=== PATIENT | male | born 1960 | race Caucasian/White ===

== ENCOUNTER 2016-02-28 19:49 | Emergency (ER) | payer BC ==
[~2016-02-28] VITALS: Ht 195.6 cm; Wt 104.3 kg
--- NOTE | ~2016-02-28 | EKG ---
[address] [address] ELECTROCARDIOGRAM REPORT Name: KIRSTENELIZABETH Room [facility]: [facility] [id number] Admission: 02/28/16 Attend Phys: Discharge: 02/28/16 Date of : 60 Report #: [id number] THIS REPORT FOR: //name// [facility] ED Test Date: 2016-02-28 Test Time: 19:57:30 Pat Name: ELIZABETH CURTIS Department: Room: Gender: M Principal Network Architect: Lisandra MULLEN RN : 1960 Requested By: Nano Narvaez Order Number: [id number] MD: Rodrigo Salinas Measurements Intervals [place] Rate: 70 P: 41 MO: 204 QRS: 13 QRSD: 82 T: 38 QT: 377 QTc: 407 Interpretive Statements Sinus rhythm Borderline prolonged MO interval No previous ECG available for comparison Electronically Signed On 02-29-2016 8:21:24 PRODUCT TECHNICIAN by Rodrigo Salinas [email or web address] <ELECTRONICALLY SIGNED> By: Rodrigo Salinas MD 02/29/16820 56 56 Rodrigo Salinas MD /SHERRY
[2016-02-28 22:39] LABS: BASOPHILS 0.7 % (0.0-2.0); EOSINOPHILS 1.3 % (0.0-3.0); HEMATOCRIT 40.2 % (42.0-52.0); HEMOGLOBIN 13.5 gm/dL (14.0-18.0); MCH 29.6 pg (26.0-34.0); MCHC 33.6 % (28.0-37.0); MCV 88.3 fL (80.0-100.0); MONOCYTES 8.9 % (1.0-8.0); PLATELET COUNT 257 thou/uL (150-400); POLYS 70.1 % (36.0-66.0); RBC 4.56 mil/uL (4.50-6.00); RDW 14.1 % (10.5-14.5); WBC 8.6 thou/uL (4.0-11.0)
[2016-02-28 22:40] LABS: MANUAL DIFF NO
[2016-02-28 22:46] LABS: ANION GAP 8 mmol/L (7-16); BUN 21 mg/dL (7-18); CALCIUM 8.8 mg/dL (8.5-10.1); CHLORIDE 105 mmol/L (98-107); CO2 28 mmol/L (21-32); GLUCOSE 99 mg/dL (70-99); POTASSIUM 3.8 mmol/L (3.5-5.1); SODIUM 141 mmol/L (136-145)
[2016-02-28 22:56] LABS: TROPONIN-I < 0.04 ng/mL (<0.04-0.07)
[2016-02-28 22:58] VITALS: BP 123/83
== END 2016-02-28 22:58 | disposition home or self-care (01) ==
LOC: ER 19:49
PROVIDERS: Emergency Medicine
DX: R07.89 Other chest pain (principal)